=== PATIENT | male | born 1995 | race Caucasian/White ===

== ENCOUNTER 2020-08-06 10:03 | Emergency (ER) | payer BC, SELFPAY ==
--- NOTE | ~2020-08-06 | XR_ITS ---
EXAMINATION: XR shoulder LT min 2V DATE: 08/06/2020 10:35 INDICATION: Left shoulder pain. TECHNIQUE: 4 views of left shoulder were obtained. COMPARISON: None. FINDINGS: Bone alignment is normal. No fracture. Joint spaces are well maintained. IMPRESSION: 1. Normal left shoulder. Reviewed, dictated and finalized at location A. [facility]ER IMPRESSION: 1. Normal left shoulder.
[2020-08-06 10:13] VITALS: BP 160/108; PULSE 112; RESP 18; TEMP 36.6; O2SAT 100
--- NOTE | 2020-08-06 10:29 | ED.UPPEXIN ---
HPI - Extremity Injury (Upper) General Chief Complaint: Extremity Injury, Upper Stated Complaint: left shoulder injury Time Seen by Provider: 08/06/20 10:13 Source: patient Mode of arrival: ambulatory Limitations: no limitations History of Present Illness HPI narrative: This is a 24 year old male that presents to the ER for left shoulder pain since yesterday. Reports it has been bothering him for a couple of weeks. Reports the pain worsened yesterday. Reports it feels like when he dislocated his shoulder in the past. No recent injury or trauma. He does do a lot of overhead lifting at work. Reports decreased ROM due to pain. Denies numbness. Related Data Allergies Allergy/AdvReac Type Severity Reaction Status Date / Time No Known Allergies Allergy Verified 08/06/20 09:28 Review of Systems Review of Systems: Narrative: CONSTITUTIONAL: Denies fever CARDIOVASCULAR: Denies chest pain RESPIRATORY: Denies dyspnea. SKIN: Denies rash MUSCULOSKELETAL: Reports joint pain, and myalgia. NEUROLOGIC: Denies numbness All systems reviewed & are unremarkable except as noted in HPI and below PMFSH Past Medical History Medical History BMI over 35 Family History Family History Other Family history of type 2 diabetes mellitus Hypertension Social History Social History Smoking status: Never smoker Alcohol intake: never Gender identity (if verbalized by the patient): Male Exam Narrative: Exam Narrative: GENERAL: Well-appearing, obese, and in no acute distress. HEAD: Normocephalic, atraumatic. EYES: EOMI. CHEST: Clear to auscultation. No respiratory distress. No wheezes rales or rhonchi HEART: Regular rate and rhythm. No murmur heard. Normal peripheral pulses. EXTREMITIES: Decreased ROM in the left shoulder due to pain. No edema, erythema or obvious deformity. Normal radial pulses. Normal sensation. SKIN: Warm, dry, no rash. NEURO: No focal deficits. Alert and oriented x3. PSYCH: Normal mood and affect Course Vital Signs Vital signs: Vital Signs Temperature 97.8 F 08/06/20 10:13 Pulse Rate 112 H 08/06/20 10:13 Respiratory Rate 18 08/06/20 10:13 Blood Pressure 160/108 H 08/06/20 10:13 Pulse Oximetry 100 08/06/20 10:13 Temperature 97.8 F 08/06/20 10:13 Pulse Rate 112 H 08/06/20 12:59 Respiratory Rate 18 08/06/20 12:59 Blood Pressure 158/90 H 08/06/20 12:59 Pulse Oximetry 100 08/06/20 12:59 MDM - Extremity Injury (Upper) MDM Narrative Medical decision making narrative: Patient presents to the ER for left shoulder pain over the last couple of weeks, worsening yesterday. No known injury or trauma. Patient is neurovascularly intact. Left shoulder x-ray is without acute findings. Does do repetitive overhead lifting at work, and reports history of previous labral repair of that shoulder. Was instructed to rest, ice and take over the counter pain medication as needed. Will be given orthopedics for follow up. Was given warnings to return to the ER Imaging Data Radiologist's impression: ITS Impressions Shoulder X-Ray 08/06/20 10:38 IMPRESSION: 1. Normal left shoulder. Critical Care Time Critical Care Time Critical Care Time: No Discharge Plan Discharge Clinical Impression: Acute pain of left shoulder Patient Disposition: Home, Self-Care Condition: Stable Instructions: Shoulder Pain (ED) Additional Instructions: Return to the emergency department if you experience fever, redness and swelling of your arm, numbness, or any other symptoms that are concerning to you Rest. Ice to the area. You may use the sling for comfort. Do try to come out of the sling and do range of motion exercises so your shoulder doesn't get stiff. [id number] pain medication as needed Follow-up with orthopedic
[2020-08-06] MEDS: KETOROLAC (*BKC) 60 MG/2 ML VIAL IM (10:57)
[2020-08-06] MEDS: HYDROcodone/acetaminophen (*CRX) 5-325 MG TABLET 1 TAB PO (10:57)
[2020-08-06 12:59] VITALS: BP 158/90; PULSE 112; RESP 18; O2SAT 100
[2020-08-06 13:25] VITALS: BP 156/88; PULSE 110; RESP 18; O2SAT 100
== END 2020-08-06 13:43 | disposition home or self-care (01) ==
PROVIDERS: Emergency Provider Emergency Medicine; PCP Family Medicine
DX: M25.512 Pain in left shoulder (principal)
CPT/HCPCS: 73030; 96372; 99283; A4565; A9270; J1885

== ENCOUNTER 2022-08-12 12:06 | Outpatient (CLI) | payer BC, SELFPAY ==
[2022-08-12 13:23] LABS: Hematocrit 44.5 % (42.0-52.0); Hemoglobin 15.2 g/dL (14.0-18.0); Mean Corpuscular HGB Conc 34.2 g/dl (32-36); Mean Corpuscular Hemoglobin 31.8 pg (26-34); Mean Corpuscular Volume 93.1 fl (80-100); Mean Platelet Volume 10.3 fl (7.4-10.4); Platelet Count Result 282 k/mm3 (150-375); Red Blood Count 4.78 M/mm3 (4.6-6.20); Red Cell Distribution Width 11.9 % (11.5-14.5); White Blood Count 6.7 K/mm3 (4.5-10.0)
[2022-08-12 13:30] LABS: Hemoglobin A1C 4.8 % (<5.7)
[2022-08-12 13:46] LABS: Anion Gap 9 mmol/L (8-16); Blood Urea Nitrogen 12 mg/dL (9-20); Calcium 8.5 mg/dL (8.4-10.2); Carbon Dioxide 25 mmol/L (22-30); Chloride 100 mmol/L (98-107); Estimated Glomerular Filt Rate > 60; Glucose 104 mg/dL (65-110); Potassium 4.3 mmol/L (3.4-5.0); Sodium 134 mmol/L (137-145); Uric Acid 6.7 mg/dL (3.5-8.5)
== END 2022-08-12 12:07 | disposition home or self-care (01) ==
LOC: ANHLAB 12:08
PROVIDERS: PCP Family Medicine; Visit Provider Nurse Practitioner Family
DX: R53.83 Other fatigue (principal); R73.09 Other abnormal glucose; N28.9 Disorder of kidney and ureter, unspecified; M10.9 Gout, unspecified
CPT/HCPCS: 36415; 80048; 83036; 84550; 85027

== ENCOUNTER 2024-07-18 09:17 | Outpatient (CLI) | payer BC, SELFPAY ==
[2024-07-18 10:21] LABS: Basophils Absolute Auto 0.1 K/mm3 (0.0-0.1); Basophils Percent Auto 0.7 % (0.2-1.2); Eosinophils Absolute Auto 0.4 K/mm3 (0-0.3); Eosinophils Percent Auto 5.3 % (0-4.4); Hematocrit 38.4 % (42.0-52.0); Hemoglobin 13.5 g/dL (14.0-18.0); Immature Granulocyte Absolute 0.04 K/mm3 (0.00-0.031); Immature Granulocyte Percent A 0.6 % (0-0.5); Lymphocytes Absolute Auto 1.93 K/mm3 (0.9-3.2); Lymphocytes Percent Auto 26.7 % (18.3-44.2); Mean Corpuscular HGB Conc 35.2 g/dl (32-36); Mean Corpuscular Hemoglobin 30.1 pg (26-34); Mean Corpuscular Volume 85.5 fl (80-100); Monocytes Absolute Auto 0.8 K/mm3 (0.1-0.6); Monocytes Percent Auto 10.5 % (2.6-8.5); Neutrophils Absolute Auto 4.1 K/mm3 (1.3-6.7); Neutrophils Percent Auto 56.2 % (45.5-73.1); Platelet Count Result 338 k/mm3 (150-375); Red Blood Count 4.49 M/mm3 (4.6-6.20); Red Cell Distribution Width 12.5 % (11.5-14.5); White Blood Count 7.2 K/mm3 (4.5-10.0)
[2024-07-18 10:35] LABS: Alanine Aminotransferase 16 U/L (6-50); Albumin Level 4.3 g/dL (3.5-5.1); Alkaline Phosphatase 82 U/L (38-126); Anion Gap 7 mmol/L (4-12); Aspartate Amino Transferase 17 U/L (17-59); Bilirubin,Total 0.6 mg/dL (0.2-1.3); Blood Urea Nitrogen 15 mg/dL (9-20); Calcium 9.4 mg/dL (8.4-10.2); Carbon Dioxide 31 mmol/L (22-30); Chloride 99 mmol/L (98-107); Cholesterol 242 mg/dL (0-200); Estimated Glomerular Filt Rate > 60; Glucose 100 mg/dL (65-110); HDL Direct 21 mg/dL; Potassium 3.8 mmol/L (3.4-5.0); Sodium 137 mmol/L (137-145); Triglycerides 174 mg/dL (<150); Uric Acid 14.7 mg/dL (3.5-8.5)
[2024-07-18 10:46] LABS: LDL Cholesterol Direct 170 mg/dL
[2024-07-18 19:04] LABS: GGT 44 U/L (3-70)
== END 2024-07-18 09:18 | disposition home or self-care (01) ==
LOC: ANHLAB 09:19
PROVIDERS: PCP Family Medicine; Visit Provider Family Medicine
DX: F10.10 Alcohol abuse, uncomplicated (principal); Z13.29 Encounter for screening for other suspected endocrine disorder; Z13.220 Encounter for screening for lipoid disorders; M10.9 Gout, unspecified; I10 Essential (primary) hypertension
CPT/HCPCS: 36415; 80053; 80061; 82977; 84443; 84550; 85025